=== PATIENT | female | born 1980 | race Caucasian/White ===

== ENCOUNTER 2016-08-31 01:14 | Inpatient (IN) ==
[2016-08-31] MEDS ORDERED: DILAUDID IV ONE ×2 (01:39→03:14)
[2016-08-31] MEDS ORDERED: ZOFRAN IV ONE (01:40)
[2016-08-31 01:53] LABS: URINE CULTURE NEEDED? NO; URINE MICRO REVIEW NEEDED? NO; URINE SOURCE CLEAN CATCH
[2016-08-31 01:57] LABS: BASO% 0.2 % (0.0-0.8); EOS# 0.05 X1000 (0.0-0.7); EOS% 0.2 % (0.0-10.0); HEMATOCRIT 44.1 % (37.0-47.0); HEMOGLOBIN 14.8 g/dL (12.0-16.0); IMM GRAN# 0.07 X1000 (0.0-0.04); IMM GRAN% 0.3 % (0.0-0.5); LYMPH# 1.71 X1000 (1.2-3.4); LYMPH% 8.2 % (20.5-51.1); MANUAL DIFF NEEDED? NO; MCH 29.5 PG (27-31); MCHC 33.6 g/dL (33-37); MCV 87.8 FL (81-99); MONO# 1.58 X1000 (0.11-0.59); MONO% 7.5 % (1.7-9.3); MPV 10.7 FL (7.4-10.4); NEUT% 83.6 % (42.2-75.2); PLT 291 X1000 (130-400); RBC 5.02 XMIL (4.2-5.4)
[2016-08-31 01:57] LABS: BILIRUBIN URINE NEGATIVE (NEGATIVE); BLOOD URINE NEGATIVE (NEGATIVE); COLOR YELLOW; GLUCOSE URINE NEGATIVE (NEGATIVE); LEUKOCYTES URINE NEGATIVE (NEGATIVE); NITRITE URINE NEGATIVE (NEGATIVE); PROTEIN URINE NEGATIVE (NEGATIVE); SP GRAVITY URINE 1.005; TURBIDITY URINE CLEAR (CLEAR); UR EPITHELIAL CELLS <10 /HPF (<10); URINE BACTERIA NEGATIVE /HPF; URINE RBC <10 /HPF (<10); URINE WBC <10 /HPF (<10); UROBILINOGEN URINE NORMAL (NORMAL)
[2016-08-31] MEDS ORDERED: ZOSYN 3.375 GM/NS 3.375 GM/50 ML IVPB ONE (02:06)
[2016-08-31 02:14] LABS: AGAP 17; ALBUMIN 4.3 g/dL (3.5-5.0); ALKALINE PHOSPHATASE 113 U/L (32-104); BUN 5 mg/dL (8-22); CALCIUM 8.9 mg/dL (8.8-10.2); CHLORIDE 99 mmol/L (98-107); COSMO 275; GOT 27 U/L (10-30); GPT 34 U/L (10-36); POTASSIUM 3.7 mmol/L (3.5-5.1); SODIUM 138 mmol/L (136-145); TCO2 22 mmol/L (25-35); TOTAL BILIRUBIN 0.33 mg/dL (0.20-1.00); TOTAL PROTEIN 7.9 g/dL (6.3-8.3)
[2016-08-31] MEDS ORDERED: ZOSYN 3.375 GM/NS 3.375 GM/50 ML IVPB IV SCH (02:15)
[2016-08-31] MEDS ORDERED: DILAUDID ONE (03:16)
[2016-08-31 07:03] LABS: INR 0.96; PROTIME 10.1 Seconds (9.2-11.7); PTT 29.2 Seconds (22.0-36.0)
--- NOTE | 2016-08-31 08:11 | Diag Imaging Result Document ---
PROCEDURE NAME: CT ABD/PELVIS W/ IV CONT ONLY - 08/31/2016 CT ABDOMEN AND PELVIS WITH INTRAVENOUS: FINDINGS: There are ground-glass infiltrates in the lower lungs with tiny nonspecific nodular densities. No pleural effusions. I believe there is mild fatty infiltration of the liver. Normal spleen, pancreas, gallbladder, adrenal glands, and kidneys. No hydronephrosis. No aortic aneurysm. Mild atherosclerosis. No bowel obstruction. No inflammation about the cecum. No abscess. No free air. There are scattered diverticula. The urinary bladder is not distended. Normal uterus. A 3.4 cm cyst arises from the right ovary. There is a surgical clip in the anterior pelvis several centimeters from the ovaries and the uterus. An additional surgical clip lies adjacent to the left ovary. IMPRESSION: 1. Ground-glass basilar infiltrates with nonspecific scattered nodules. 2. Right ovarian cyst. 3. Possible malpositioned tubal ligation clip. A preliminary report was given at 3:21 a.m.
[2016-08-31] MEDS ORDERED: TYLENOL PO PRN (08:41)
--- NOTE | 2016-08-31 09:53 | HISTORY AND PHYSICAL ---
PRIMARY CARE PROVIDER: The patient, at this time, does not have a primary care provider. CASING CREW PUSHER: Reports that her CASING CREW PUSHER is Dr. Barrett in [place]. CHIEF COMPLAINT: Right lower quadrant pain. HISTORY OF PRESENT ILLNESS: Ms. Wills is a 35-year-old, female with a past medical history notable for a previous tubal ligation. The patient states that since tubal ligation, she has had problems with endometriosis and has had intermittent problems with right lower quadrant pain for the past year or so. The patient states that Dr. Barrett has suggested that she receive a hysterectomy, though the patient does not have any medical insurance and states due to cost, she has not been able to have this performed. She presents to the ER this morning with complaints of right lower quadrant pain x2 days. She also reports fever and chills. She denies any nausea, vomiting, or diarrhea. The patient does report that she has had problems with irregular periods as well as menorrhagia. Though she denies any vaginal bleeding or discharge at present. She denies any headache at this time, though has reported that recently that she has noticed that she gets headaches with her periods. She denies any dizziness, lightheadedness, chest pain, shortness of breath, nausea, vomiting, diarrhea, dysuria, urinary frequency, pain, numbness, or tingling in the extremities. Patient is a 1 pack per day smoker. Upon evaluation in the ER, the patient was found to be slightly tachycardic upon arrival at 123, though this has improved with her last heart rate being 92. Laboratory results showed a leukocytosis with a white blood cell count of 20,000. She does have right lower quadrant tenderness noted upon examination. A CT of the abdomen and pelvis with IV contrast was performed which showed a cystic mass in the right ovary which was indeterminate but could cause symptoms. Radiologist noted this was most likely a benign functional or hemorrhagic cyst. Also noted was possible malposition of the right tubal ligation clip. At this time, the patient will be transferred to [facility] for admission and will have a gynecology consult placed. REVIEW OF SYSTEMS: A 12 point review of systems was conducted with the patient. All were negative except for pertinent positives mentioned above in the HPI. PAST MEDICAL HISTORY: Endometriosis. PAST SURGICAL HISTORY: Tubal ligation. SOCIAL HISTORY: Patient currently lives at home with her . She states that she has 5 children. She does report that she smokes 1 pack per day and has done so since around the age of 15. She does report occasional alcohol use, though denies any illicit drug use. FAMILY HISTORY: Positive for ovarian cancer, heart disease, and diabetes mellitus. ALLERGIES: Patient reports allergy to tramadol. HOME MEDICATIONS: Patient denies any prescription medicines. DIAGNOSTIC DATA: Laboratory results: White blood cell count 20.9, hemoglobin 14.8, hematocrit 44.1, platelet count 291,000. Sodium 138, potassium 3.7, chloride 99, bicarb 22 , BUN is 5, creatinine 0.6, glucose 134, calcium 8.9. Liver function tests were within normal limits except for alkaline phosphatase was slightly elevated at 113, plasma lactate was 1.4. Urinalysis obtained via clean catch, was within normal limits. It was negative for protein , ketones, blood, nitrites, leukocytes, or bacteria. CT of the abdomen and pelvis with contrast with findings as mentioned above. It did show a possible cystic mass in the right ovary. Dr. Morrison, radiologist, did over read the CT and upon review of his report, he did note that the patient also had ground-glass bibasilar infiltrates with nonspecific scattered nodules. PHYSICAL EXAMINATION: VITAL SIGNS: Temperature 98.3 degrees, heart rate 88, respirations 15, blood pressure 102/70. Oxygen saturation is 96% on room air. GENERAL: Ms. Wills is a pleasant, 35-year-old, female who is resting on the ER stretcher. She is in no acute distress. She was awake, alert, and able answer all questions appropriately. HEENT: Head is atraumatic, normocephalic. Pupils are equal, round, reactive to light, 3 mm bilaterally and brisk. Oral mucosa is moist. Oropharynx is clear. NECK: Was supple. Trachea midline. CARDIOVASCULAR: Patient has normal S1, S2. No murmurs, gallops, rubs appreciated. Regular rate and rhythm. PULMONARY: Patient has symmetrical chest expansion bilaterally. Lung sounds were clear to auscultation in bilateral full ahmadi. ABDOMEN: Soft, nondistended. The patient did have right lower quadrant tenderness noted, though no rebound tenderness present at this time. Bowel sounds were present in all 4 quadrants, were normoactive. EXTREMITIES: No cyanosis, clubbing, or edema noted. Pulse, motor, and sensory were intact in all extremities as well. Pedal pulses were 3+ bilaterally. INTEGUMENTARY: The patient's skin is pink, warm, dry, and intact. No lesions or sores noted. NEUROLOGICAL: Patient is alert and orient x4. Cranial nerves 2-12 are grossly intact. ASSESSMENT AND PLAN: 1. Right ovarian cystic mass. Initial CT report impression did note that the patient had a cystic mass in the right ovary that was indeterminate. CT report states this is most likely a benign functional or hemorrhagic cyst. The patient does have leukocytosis present as well as fever and chills. We have placed a consult with gynecology as well as a pelvic ultrasound for this morning. We will empirically cover the patient with Mefoxin 2 g intravenous every 6 hours as well as doxycycline 100 mg by mouth twice a day. Blood cultures have been obtained and we will continue to follow, and await gynecology's evaluation and further recommendations. 2. Leukocytosis. This could be related to the patient's right ovarian cyst though we will continue to rule out any other infectious process as well and continue to follow. 3. Right lower quadrant abdominal pain. We will give the patient Dilaudid 1 mg intravenous every 3 hours for pain and will continue to follow. 4. Tobacco abuse/dependency. We did discuss the importance of smoking cessation with the patient upon our evaluation and we will continue to discuss this with her throughout her admission and upon discharge. At this time, the patient will receive a NicoDerm patch daily. The patient has been transferred to [facility]. She will receive vital signs every 8 hours with strict intake and output. Deep venous thrombosis prophylaxis will be provided with sequential compression devices. She will be on a regular diet. We will repeat a CBC and BMP tomorrow morning. Gastrointestinal prophylaxis will be provided with Protonix 40 mg intravenous every 24 hours. As mentioned previously, upon radiologist over-read of the overnight CT of the abdomen and pelvis by Dr. Morrison, he did note ground-grass basilar infiltrates with nonspecific scattered nodules. We have placed an order for a CT of the thorax with contrast , though due to the patient receiving intravenous contrast this morning for her CT of the abdomen and pelvis, we will wait 24 hours to perform this examination and perform this on the at 7 a.m. Until then, we have placed an order for a stat 2 view chest x-ray and will await those findings. If there are findings of infiltrates or pneumonia, we will treat appropriately and continue to follow. Further orders and recommendations pending hospital course, diagnostic studies, and physician evaluation. Dictated by IESHA Peres for Nick Jenkins MD I examined pt and discussed plan with BASIN OPERATOR cc: Nick Jenkins MD MTDD
[2016-08-31] MEDS: SODIUM CHLORIDE 0.9% INJ SCH (10:12)
[2016-08-31] MEDS: MEFOXIN 2 GM/NS 2 GM/50 ML IVPB IV SCH ×3 (10:12→21:34)
[2016-08-31] MEDS: DOXYCYCLINE PO SCH ×2 (10:12→21:34)
[2016-08-31] MEDS: NS 1,000 ML IV SCH ×2 (10:12→19:59)
[2016-08-31] MEDS: PROTONIX IV SCH (10:12)
[2016-08-31] MEDS: NICODERM PATCH TD SCH (10:13)
--- NOTE | 2016-08-31 11:04 | EKG Report ---
Test Performed on : 08/31/2016 10:26:01 AM Test Reason : Ovarian Cystic Mass, Poss. Surgical Pt. Blood Pressure : / mmHG Vent. Rate : 065 BPM Atrial Rate : 065 BPM P-R Int : 142 ms QRS Dur : 092 ms QT Int : 408 ms P-R-T Axes : 038 020 027 degrees QTc Int : 424 ms Normal sinus rhythm. with sinus arrhythmia. Normal ECG No previous ECGs available Confirmed by Albin Jack MD ([id number]) on 09/03/2016 9:51:14 PM
[2016-08-31] MEDS ORDERED: PNEUMOVAX 23 IM ONE (13:00)
--- NOTE | 2016-08-31 13:04 | Diag Imaging Result Document ---
PROCEDURE NAME: US PELVIC NON-CREDIT COLLECTIONS ANALYST COMPLETE - 08/31/2016 TRANSABDOMINAL AND TRANSVAGINAL PELVIC ULTRASOUND: FINDINGS: The urinary bladder is distended and appears normal. The uterus measures 7.7 x 5.4 x 4.4 cm. No uterine abnormality. The endometrium is not thickened. The two thompson combined measures only 7 mm. The left ovary is not well seen. The right ovary contains a 2.9 cm cyst. No free fluid. No other adnexal abnormality. IMPRESSION: There is a 2.9 cm right ovarian cyst. A preliminary report was given at 12:38 p.m.
--- NOTE | 2016-08-31 13:14 | Diag Imaging Result Document ---
PROCEDURE NAME: CHEST-2 VIEWS - 08/31/2016 FRONTAL AND LATERAL CHEST, TWO VIEWS: COMPARISON: No comparison films. FINDINGS: Poor inspiratory effort. The heart is borderline mildly prominent. Mild increased interstitial markings in the lower lungs. No consolidation. No pleural effusions. No free air beneath the diaphragm. IMPRESSION: Small basilar infiltrates.
[2016-08-31] MEDS: DILAUDID IV PRN ×2 (13:19→16:29)
[2016-08-31] MEDS: ZOFRAN IV PRN (19:59)
[2016-08-31] MEDS: PHENERGAN PO PRN (22:36)
[2016-08-31] MEDS: PERCOCET-10 PO PRN (22:37)
--- NOTE | 2016-09-01 00:29 | CONSULTATION ---
DATE OF CONSULTATION: 08/31/2016 REASON FOR CONSULTATION: Pelvic pain and ovarian cyst. HISTORY OF PRESENT ILLNESS: Ms. Wills is a 35-year-old, 4, para 4-0-0-3, who was admitted early this morning through [facility] with increased abdominal pain, a leukocytosis, and a right ovarian cyst on ultrasound. The patient gives a history of persistent right lower quadrant pain, worsening in intensity, but it has been going on for the past few years. This has also been exacerbated by abnormal uterine bleeding. She denies fever, chills, nausea, vomiting, chest pain, shortness of breath, heart palpitations. OBSTETRICAL HISTORY: Four previous vaginal deliveries. One was a stillborn at term, due to a cord accident. GYNECOLOGIC HISTORY: Patient states she has had heavy irregular bleeding, passing clots, sometimes days, sometimes bleeding lasting weeks since she has had her tubes tied. She has not had any workup for this. PAST MEDICAL HISTORY: She denies hypertension,diabetes, asthma, migraines. States she has endometriosis, but this is more due to history, no surgical pathology has been used to diagnose this. PAST SURGICAL HISTORY: Tubal ligation in 2013. MEDICATIONS: She is on no medications, other than [id number] nonsteroidals due to her pelvic pain. ALLERGIES: She has no known drug allergies. SOCIAL HISTORY: Significant for a [id number]-[id number] smoker for many years. FAMILY HISTORY: Significant for a mother with ovarian cancer, for which she had a hysterectomy at the age of 29, and is still living, maternal great aunts both had breast cancer, and she had a maternal aunt who at age 39 from colon cancer. PHYSICAL EXAMINATION: Vital Signs: Temperature 97.9 degrees, pulse 71, blood pressure 106/66. General: She is alert, appears to be in [id number] distress. Neck: Supple. Lungs: Clear. Heart: Regular sinus rhythm. Abdomen: Positive bowel sounds. She has some guarding in the right lower quadrant. Mild rebound. No other abdominal complaints. Pelvis: Exam deferred. Extremities: +2 lower extremity edema. LABORATORY VALUES: Leukocytosis at 21,000. Hemoglobin 14 and hematocrit 44. Platelets 291,000. Chemistries: Dehydrated, with a carbon dioxide of 22. Glucose is high at 134. Urine shows no ketones, no blood, and no protein. A CT scan was originally done. It was reported at 2:00 this morning, with ground glass basal infiltrates and nonspecific scattered nodules in her lungs, a right ovarian cyst, which was described on ultrasound as a 3.4 cyst that arises from the right ovary. An ultrasound was obtained later this morning, and on it was essentially a normal pelvic ultrasound. There was a 2.9 cm right ovarian cyst. ASSESSMENT: Right lower quadrant pain, leukocytosis. PLAN: As far as HEALTH PSYCHOLOGIST, I see no reason at this point for surgical intervention. She is welcome to follow up in the office after her leukocytosis resolves. cc: Matt García MD
[2016-09-01] MEDS: NS 1,000 ML IV SCH (02:22)
[2016-09-01] MEDS: MEFOXIN 2 GM/NS 2 GM/50 ML IVPB IV SCH (04:07)
[2016-09-01 05:54] LABS: MANUAL DIFF NEEDED? NO
[2016-09-01] MEDS: PERCOCET-10 PO PRN ×3 (05:56→14:39)
[2016-09-01 06:05] LABS: BASO% 0.5 % (0.0-0.8); EOS# 0.21 X1000 (0.0-0.7); EOS% 2.8 % (0.0-10.0); HEMATOCRIT 39.2 % (37.0-47.0); HEMOGLOBIN 12.6 g/dL (12.0-16.0); IMM GRAN# 0.03 X1000 (0.0-0.04); IMM GRAN% 0.4 % (0.0-0.5); LYMPH# 3.13 X1000 (1.2-3.4); LYMPH% 42.4 % (20.5-51.1); MCHC 32.1 g/dL (33-37); MCV 90.1 FL (81-99); MONO# 0.83 X1000 (0.11-0.59); MONO% 11.2 % (1.7-9.3); MPV 10.7 FL (7.4-10.4); NEUT% 42.7 % (42.2-75.2); PLT 231 X1000 (130-400); RBC 4.35 XMIL (4.2-5.4)
[2016-09-01 06:20] LABS: AGAP 11; BUN 7 mg/dL (8-22); CALCIUM 8.7 mg/dL (8.8-10.2); CHLORIDE 107 mmol/L (98-107); COSMO 279; POTASSIUM 4.2 mmol/L (3.5-5.1); SODIUM 141 mmol/L (136-145); TCO2 24 mmol/L (25-35)
[2016-09-01 07:16] VITALS: BP 106/66
[2016-09-01] MEDS: PROTONIX IV SCH (09:07)
[2016-09-01] MEDS: NICODERM PATCH TD SCH (09:07)
[2016-09-01] MEDS: DOXYCYCLINE PO SCH (09:07)
[2016-09-01] MEDS: SODIUM CHLORIDE 0.9% INJ SCH (09:07)
--- NOTE | 2016-09-01 10:50 | Diag Imaging Result Document ---
PROCEDURE NAME: CT THORAX W/CONTRAST - 09/01/2016 CT CHEST WITH IV CONTRAST: COMPARISON: No prior dedicated chest CT is available for comparison. FINDINGS: Similar to the previous recent abdominal CT dated 08/31/2016, there are patchy ground- glass infiltrates seen throughout both lungs. The portions of the lungs that were in the field of view on the previous study are largely stable. There is a focus of infiltrate at the right middle lobe that does appear to be more prominent, however. Similarly, ground-glass infiltrate is seen in both upper lobes but these sections of the lungs were out of the field of view on the previous abdominal CT. These findings suggest pulmonary edema plus or minus infectious pneumonia. There is probably also a component of subsegmental atelectasis at the lung bases. There are a couple of small nonspecific nodular densities involving both lower lobes that are stable as compared to the previous study with the largest measuring up to 7.8 mm in the greatest dimension. There is a 3.7- mm noncalcified pleural based nodule at the posterior aspect of the left upper lobe on image 40 of series 3 that was out of the field of view on the previous study. As stated previously, these are nonspecific and certainly may represent noncalcified granulomata. Consider followup based on Fleischner Society criteria if clinically warranted. There are no pleural fluid collections and there is no pneumothorax. There are borderline to mildly prominent mediastinal and hilar lymph nodes that are nonspecific but are probably reactive. For reference, there is a lymph node in the aortopulmonary window on the left measuring up to 1.7 x 1.3 cm axially on image 53 of series 2. The heart appears borderline to mildly prominent. IMPRESSION: 1. Diffuse patchy ground-glass infiltrates seen throughout both lungs as described suggesting pulmonary edema, probably with superimposed infection in the right clinical scenario. 2. Several nonspecific subcentimeter nodules as described. 3. Nonspecific mild mediastinal and hilar lymphadenopathy that is most likely reactive. 4. Borderline to mild cardiomegaly.
[2016-09-01] MEDS: ZOFRAN IV PRN (14:39)
[2016-09-01] MEDS: PHENERGAN PO PRN (14:43)
--- NOTE | 2016-09-02 06:35 | DISCHARGE SUMMARY ---
ADMISSION DATE: 08/31/2016 DISCHARGE DATE: 09/01/2016 DISCHARGE DIAGNOSES: 1. Right ovarian cyst. This is chronic in nature. Patient has a known history of endometriosis, although it is causing increased pain. 2. Leukocytosis, resolved. 3. Questionable bilateral pneumonia. We will treat as such. 4. Nausea from doxycycline. Will change to Bactrim. 5. Chronic tobacco abuse. 6. Known history of endometriosis. 7. Leukocytosis, resolved with IV fluids. Likely an inflammatory response, more so than infectious. CONSULTATIONS: Dr. García. PROCEDURES: None. BRIEF HOSPITAL COURSE: The patient is a 35-year-old female, who has a known history of endometriosis. Unfortunately, she does not have any medical insurance. She has not applied for other insurance, as she notes it is too expensive. She was admitted to the hospital with a CT that demonstrated a right ovarian cyst. This was noted to be a cyst by Radiology. The patient has a known history of endometriosis. Dr. García with [facility] was consulted, and felt that this is a nonemergent event and could be handled as an outpatient. DISPOSITION: Patient will be discharged home. She will be discharged home with pain medication. She was instructed to give Dr. García or [facility] of her choice a call and follow up as an outpatient. TIME SPENT: Greater than 35 minutes was spent in discharge planning and instructions. No other changes were made in the hospital. She will be discharged home on Bactrim for her bilateral pneumonia. cc: Brenden Abarca MD
--- NOTE | 2016-09-03 12:34 | PROVIDER DOCUMENTATION ---
This chart was entered by Saul Cortez Scribe, acting as scribe for Nash Morrison MD. HPI-Abdominal Pain/GI Problem - General Chief Complaint: Flank Pain Stated Complaint: RT SIDE PAIN Time Seen by Provider: 08/31/16 01:38 Source: patient Allergies/Adverse Reactions: Patient Allergies Allergy/AdvReac Type Severity Reaction Status Date / Time tramadol HCl * [From Ultram] Allergy RASH Verified 08/31/16 01:19 Home Medications: Home Medication List Medication Instructions Recorded Confirmed Last Taken Type Hydrocodone/APAP 10 mg/325 mg 1 each PO Q4HR #30 tablet 09/01/16 Unknown Rx [[place]-10] - History of Present Illness-ABD Nature of Presenting Problems: Pt is a 35 yof who presents to ER with CC of RLQ pain x2 days. Pt describes pain as a sharp/stabbing pain that is worsened on exertion, says that it feels like something has torn/is tearing. Pt complains of RLQ pain, F/chills. Pt reports hx of endometriosis. Pt also reports that she was seen recently at [facility] for similar sxs, but reports that she did not feel as though she was taken seriously and was diagnosed with UTI. Abdominal Pain Onset Location: reports: RLQ Pain Radiation: reports: no radiation Quality of Pain: reports: sharp, stabbing Severity in ED: reports: severe Onset/Duration: reports: 2 days ago Timing: reports: still present Associated Symptoms: reports: fever/chills, trouble walking. denies: anxiety, arm pain, back/neck pain, chest pain, constipation, cough, diaphoresis, diarrhea , dizziness, EENT symptoms, fatigue, genitourinary problems, headaches, heartburn, joint pain, loss of appetite, malaise, muscle aches, sinus congestion /drainage, nausea, rash, seizure, shortness of breath, sensory/motor loss, pain with inspiration, swelling/mass in abdomen, syncope, vomiting, weakness Last BM: unsure Dark Stools Present?: reports: none noticed Rectal Bleeding: reports: none Rectal Pain: reports: none Emesis Description: reports: none Review of Systems - Adult - REVIEW OF SYSTEMS - ADULT Constitutional: reports: chills, fever. denies: fatique, night sweats, weight gain, weight loss Eyes: reports: no symptoms reported Ears, Nose, Mouth & Throat: reports: no symptoms reported Cardiovascular: reports: no symptoms reported Respiratory: reports: no symptoms reported Gastrointestinal: reports: abdominal pain. denies: hematemesis, constipation, diarrhea, difficulty swallowing, frequent heartburn, nausea, poor appetite, rectal bleeding, vomiting Genitourinary: reports: no symptoms reported Musculoskeletal: reports: no symptoms reported Integumentary: reports: no symptoms reported Neurological: reports: no symptoms reported Psychiatric: reports: no symptoms reported Endocrine: reports: no symptoms reported Hematologic/Lymphatic: reports: no symptoms reported Allergic/Immunologic: reports: no symptoms reported All Other Systems: Reviewed and Negative Past History - Adult - PAST MEDICAL HISTORY-ADULT Review of Records: reports: Nursing Assessment Review, Medications Reviewed - IMMUNIZATION STATUS Childhood Immunizations: See Nurse Assessment Flu Vaccine: See Nurse Assessment Physical Exam-General - PHYSICAL EXAM-ADULT Initial Vital Signs Reviewed: Yes - CONSTITUTIONAL General Appearance: appears well, alert, severe distress, obese, anxious, obtunded. negative: no apparent distress, mild distress, moderate distress - EYES Eyes: PERRL/EOMI, pink conjunctivae, fundi clear, no AV nicking - HEAD, EARS, NOSE, MOUTH & THROAT HENMT: normocephalic/atraumatic, moist mucous membranes, normal ENT inspection, TMs normal, pharynx normal - NECK Neck: non-tender, full range of motion, supple, normal inspection. negative: C- spine tenderness, limited range of motion, lymphadenopathy - RESPIRATORY Respiratory: chest non-tender, lungs clear, normal breath sounds, no pleuratic chest pain, no respiratory distress, no accessory muscle use. negative: respiratory distress, decreased breath sounds, accessory muscle use, wheezing - CARDIOVASCULAR Cardiovascular: normal peripheral pulses, tachycardia. negative: regular rate, rhythm, bradycardia, irregularly irregular - GASTROINTESTINAL (ABDOMEN) Abdominal Exam: normal bowel sounds, soft, no organomegaly, no pulsatile mass, tenderness (RUQ). negative: non tender - MUSCULOSKELETAL Back Exam: normal inspection, no CVA tenderness, no vertebral tenderness. negative: CVA tenderness, decreased range of motion, ecchymosis, muscle spasm, swelling, vertebral tenderness Extremity: normal range of motion, non-tender, normal gait, normal inspection, no pedal edema, no calf tenderness, normal capillary refill. negative: deformity, erythema, inflammation, swelling, tenderness - SKIN Integumentary: normal color, normal turgor, warm/dry. negative: abrasion(s), diaphoresis, ecchymosis, erythema, laceration(s), swelling, tenderness, warm - NEUROLOGIC Neurologic: accident examiner II-XII nml as tested, grossly normal, no motor/sensory deficits . negative: facial droop, focal weakness, motor weakness, sensory deficit - PSYCHIATRIC Psych/Mental Status: normal thought content, normal thought process, oriented x 3, anxious, disheveled, tearful. negative: normal mood/affect Progress - PLAN OF CARE/RESULTS Progress/Plan/Lab Results: Vital Signs - 8 hr 08/31/16 01:17 Temperature 98.2 F Pulse Rate 123 H Respiratory Rate 20 Blood Pressure 126/87 O2 Sat by Pulse Oximetry 100 Bedside Urine ED: Urine Bedside Start: 08/31/16 01:41 Freq: ORDERED Status: Active Activity Type Activity Date Activity User E-Sign Co-Sign Detail Recorded Client Recorded Date Recorded By Document 08/31/16 01:42 [id number] 08/31/16 01:43 [id number] 08/31/16 01:42 Point of Care [Bedside Point of Care] -Lot # [id number] - Results Negative -Control Line Visible? Yes -Additional Comment exp: Laboratory Results - last 24 hr 08/31/16 08/31/16 01:27 01:35 WBC 20.98 H RBC 5.02 Hgb 14.8 Hct 44.1 MCV 87.8 MCH 29.5 MCHC 33.6 RDW Std Deviation 14.7 H Plt Count 291 MPV 10.7 H Immature Gran % (Auto) 0.3 Neut % (Auto) 83.6 H Lymph % (Auto) 8.2 L [place] % (Auto) 7.5 Eos % (Auto) 0.2 Baso % (Auto) 0.2 Immature Gran # (Auto) 0.07 H Neut # (Auto) 17.53 H Lymph # (Auto) 1.71 [place] # (Auto) 1.58 H Eos # (Auto) 0.05 Baso # (Auto) 0.04 Urine Source CLEAN CATCH Urine Color YELLOW Urine Turbidity CLEAR Urine pH 6.0 Ur Specific [place] 1.005 Urine Protein NEGATIVE Ur Glucose (Stick) NEGATIVE Ur Ketones (Stick) NEGATIVE Urine Blood NEGATIVE Urine Nitrite NEGATIVE Urine Bilirubin NEGATIVE Urobilinogen Dipstick NORMAL Urine Leukocytes NEGATIVE Urine WBC (Auto) <10 Urine RBC (Auto) <10 U Epithel Cells (Auto) <10 Urine Bacteria (Auto) NEGATIVE Orders Category Date Time Status ED: Urine Bedside ORDERED Care 08/31/16 01:41 Active Saline Loc DIRECTED Care 08/31/16 01:29 Active NPO Diet 08/31/16 01:29 Active CBC WITH ELECTRONIC DIFF [HEME] Stat Lab 08/31/16 01:35 Completed COMPREHENSIVE METABOLIC PANEL [CHEM] Stat Lab 08/31/16 01:35 Received URINALYSIS W/POSS RFLX CULT-1 [URINALYSIS] Stat Lab 08/31/16 01:27 Completed Hydromorphone [Dilaudid] Med 08/31/16 01:39 Discontinued 1 mg IV NOW ONE Ondansetron [Zofran] Med 08/31/16 01:40 Discontinued 4 mg IV NOW ONE Result Diagrams: 09/01/16 05:45 09/01/16 05:45 - CT/MRI 1 CT Study: Abdomen, Pelvis Impression: See EMR Report (Possible malposition of the Right tubal ligation clip.) CT Results: See report Departure - Departure Time of Disposition Decision: 03:38 DIAGNOSIS: Abdominal pain Disposition: ADMITTED INPATIENT 09 Certified Medical Emergency: Emergent Condition: Stable - Critical Care Note This patient required my direct personal management.: No This chart was documented by the indicated scribe, (Saul Cortez, [place]) and accurately reflects the services I performed and decisions made by me, Nash Morrison MD, as attested by the provider's signature.
== END 2016-09-01 14:49 | disposition home or self-care (01) ==
LOC: ED 01:14 → P.MEDSURG 06:58 → SUATTDRO 06:58
PROVIDERS: ATTEND Family Medicine